=== PATIENT | female | born 1945 | race Caucasian/White ===

== ENCOUNTER 2025-02-08 17:13 | Emergency (ER) | payer MEDICARE, OTHER, SELFPAY ==
--- OUTSIDE RECORDS SUMMARY | 2024-08-06 13:22 | XMS_ITS | Continuity of Care Document ---
Author Organization [employer] [place] Address 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 Name Role Phone Jose PT,MPT,ATC, Joseph Unavailable Unavai lable Procedures Procedure Date Therapeutic Activities Therapeutic Exercise Therapeutic Activities Therapeutic Exercise Therapeutic Activities Therapeutic Exercise Therapeutic Activities Therapeutic Exercise Therapeutic Activities Therapeutic Exercise Therapeutic Activities Therapeutic Exercise Therapeutic Activities Therapeutic Exercise Doc neg elder mal no plan PRES/ABSN URINE INCON ASSESS PT Evaluation Moderate Complexity Therapeutic Activities Therapeutic Exercise Therapeutic Exercise Manual Therapy Therapeutic Exercise Manual Therapy Therapeutic Exercise Manual Therapy Therapeutic Exercise Manual Therapy Therapeutic Exercise Manual Therapy Therapeutic Exercise Therapeutic Exercise Doc neg elder mal no plan PRES/ABSN URINE INCON ASSESS PT Evaluation Low Complexity Therapeutic Activities Therapeutic Exercise Manual Therapy Advance Directives Directive Yes / No Effective Date File Name No Information Encounters Encounter Description Practice Location Reason(s) For Visit Diagnoses Date Provider Providers Copied on Encounter [facility], [place], [place], [id number], tel:[phone] [place] No Information [address] [place]. [facility], [place], [place], [id number], tel:[phone] [place] No Information [address] [place], . Referring Provider: Michelle Reyan, [address] [place] [address], [address]. tel:[phone] [facility] [address] [address], [place], [place], [id number], tel:[phone] [place] No Information [address] [place]. Referring Provider: Michelle Reyna, [address] [place] [address], [address]. tel:[phone] [facility] [address] [address], [place], [place], [id number], tel:[phone] [place] No Information [address] [place]. Referring Provider: Michelle Reyna, [address] [place] [address], [address]. tel:[phone] [facility] [address], [place], [place], [id number], [place] tel:[phone] [place] No Information [address] [place], . Referring Provider: Michelle Reyna, [address] [place] [address], [address]. tel:[phone] [facility] [address], [place], [place], [id number], [place] tel:[phone] [place] No Information [address] [place] Referring Provider: Michelle Reyna, [address] [place] [address], [address]. tel:[phone] [facility], [address], [place], [place], [id number], [place] tel:[phone] [place] No Information [address] [place]. Referring Provider: Michelle Reyna, [address] [place] [address], [address]. tel:[phone] [facility], [address], [place], [place], [id number], [place] tel:[phone] [place] No Information [address] [place]. Referring Provider: Michelle Reyna, [address] [place] [address], [address]. tel:[phone] [facility], [address], [place], [place], [id number], [place] tel:[phone] [place] No Information [address] [place]. Referring Provider: Michelle Reyna, [address] [place] [address], [address]. tel:[phone] [facility], [address], [place], [place], [id number], [place] tel:[phone] [place] No Information 4 [place]. . Referring Provider: Allen Quiroga, [address] [place] [address], [place], [address]. tel:[phone] [facility], [address], [place], [place], [id number], [place] tel:[phone] [place] No Information 4 [place]. . Referring Provider: [address], [place], [address]. tel:[phone] [facility], [address], [place], [place], [id number], [place] tel:[phone] [place] No Information 4 [place]. . Referring Provider: [address], [place], [address]. tel:[phone] [facility], [address], [place], [place], [address], [place] tel:[phone] [place] No Information 4 [place]. . Referring Provider: [address], [place], [address]. tel:[phone] [facility] [address], [place], [place], [id number], [place] tel:[phone] [place] No Information 4 [place]. . Referring Provider: [address], [place], [address]. tel:[phone] [facility], [place], [place], [address], [place] tel:[phone] [place] No Information 4 [place]. . Referring Provider: [address], [place], [address]. tel:[phone] [facility], [address], [place], [place], [address], [place] tel:[phone] [place] No Information 4 [place]. . Referring Provider: [address], [place], [address]. tel:[phone] [facility], [place], [place], [id number], [place] tel:[phone] [place] Unspecified urinary incontinence Andrew Flores. . Referring Provider: Allen Quiroga, [facility] [address], [place], [address]. tel:[phone] Family History Family Member Type Diagnosis Age At Onset No Information Payers Payer name Insurance type Covered republican ID Authoriza tion(s) Medicare [place] [id number] For Life Medicare Se condary Only CI [id number] Social History Type Description Quantity Date Captured Comments Sex Female Smoking Status No Information Chief Complaint And Reason For Visit No Information Reason For Referral Reason For Referral No Information History Of Present Illness Encounter Date Complaint History Of Prese nt Illness No Information Functional Status Date Functional Assessmen t No Information Instructions Date Instruction Additional Infor kaleigh Kegel exercises were explained to the patient. Related to Unspecified urinary incontinence Assessments Type Assessment Date No Information Patient Care Teams Name Effective Dates (start - stop) Status Members No Information
--- NOTE | ~2025-02-08 | XR_ITS ---
EXAMINATION: XR knee LT 3V, 02/08/2025 17:41 CDT HISTORY: fall COMPARISON: No comparisons available. Findings: No acute fracture or malalignment. Prosthesis intact Soft tissues unremarkable. Impression: No acute fracture or malalignment. Reviewed, dictated and finalized at location P. Impression: No acute fracture or malalignment.
--- NOTE | ~2025-02-08 | XR_ITS ---
EXAMINATION: XR ankle RT 2V, 02/08/2025 17:41 CDT HISTORY: Fall X TODAY COMPARISON: No comparisons available. Findings: Small avulsion fracture arising from the lateral aspect of the probable cuboid. No significant degenerative changes. Soft tissues unremarkable. Impression: Small evulsion fracture Reviewed, dictated and finalized at location P. Impression: Small evulsion fracture
--- NOTE | ~2025-02-08 | XR_ITS ---
XR foot RT min 3V 02/08/2025 19:37 Indication: Cuboid fracture Procedure: 3 views right foot Comparison: 02/08/2025 Findings: There is an avulsion fracture lateral margin of the calcaneus. Moderate soft tissue swelling. Osteopenia. 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 Lisfranc joint intact. No other fracture or traumatic malalignment. Small degenerative calcaneal enthesophyte. There are degenerative changes of the talonavicular joint. Impression: 1: Avulsion fracture lateral margin of the calcaneus with associated soft tissue swelling. Reviewed, dictated and finalized at location O. Impression: 1: Avulsion fracture lateral margin of the calcaneus with associated soft tissu e swelling.
--- NOTE | ~2025-02-08 | XR_ITS ---
EXAMINATION: XR knee RT 3V, 02/08/2025 17:41 CDT HISTORY: fall X TODAY COMPARISON: No comparisons available. Findings: No acute fracture or malalignment. No significant degenerative changes. Soft tissues unremarkable. Impression: No acute fracture or malalignment. Reviewed, dictated and finalized at location P. Impression: No acute fracture or malalignment.
--- OUTSIDE RECORDS SUMMARY | 2025-02-08 17:16 | XMS_ITS | Clinical Summary ---
Author Organization [facility] Address [address] [address] Care Team Providers Care Lace Finisher Name Role Phone Allen Quiroga MD Primary Care Provider [phone] Karina Ruelas MD Unavailable Jeannette Cabrales MD Unavailable [phone] Elizabeth An MD Unavailable Bill Mederos MD Unavailable Riley Zarco MD Unavailable Malik West MD Unavailable [phone] Mitch Ch MD Unavailable Allergies Active Allergy Reactions Criticality Noted Date Comments Penicillins Rash Medium Medications psyllium 0.52 gram capsuleIndication s:constipation Take 1 capsule (0.52 g total) by mouth tin stacker before breakfast 4 Active calcium carbonate (CALCIUM 500 ORAL)Indications: supplement Take by mouth tin stacker before breakfast Active ascorbic acid (VITAMIN C) 500 mg tablet,chewableIn dications:for supplement every morning Activ e lisinopriL (PRINIVIL,ZESTRIL ) 10 mg tabletIndications :Essential hypertension TAKE 1 TABLET DAILY 90 tablet 3 4 Active doxycycline hyclate (VIBRAMYCIN) 50 mg capsule Take 1 capsule (50 mg total) by mouth 2 (two) times a day 180 capsule 4 4 Active azelastine (ASTELIN) 137 mcg (0.1 %) nasal spray Administer 1 spray into each nostril 2 (two) times a day Use in each nostril as directed 90 mL 3 4 Active gabapentin (NEURONTIN) 300 mg capsule Take 1 capsule (300 mg total) by mouth 3 (three) times a day 60 capsule 5 07/03/19 26 Active hydroxychloroquin e (PlaqueniL) 200 mg tabletIndications :Rheumatoid arthritis involving multiple sites with positive rheumatoid factor (HCC) TAKE 1 TABLET DAILY 90 tablet 5 Active Active Problems Problem Noted Date Diagnosed Date Blood in stool 01/01/2025 Assessment & Plan (01/01/2025 11:23 AM CDT): Episode of diarrhea, abdominal cramping 12/29 with 3 episodes of bloody bowel movements, significant quantity per pt. Hx IBS, pt states hx polyps on colonoscopy in the past. Hx internal/external hemorrhoids. Not taking NSAIDs. No fevers, chills, N/V. On exam today abdomen is non-tender, VSS. Checking labs, CT abd/pelvis, colonoscopy. Instructed pt to go to ER w/recurrence, verbalized understanding and agrees w/POC. Abdominal pain 01/01/2025 Assessment & Plan (01/01/2025 11:24 AM CDT): Generalized abdominal discomfort and cramping with episode of blood in stool; non-tender on exam today. Last bowel movement 2 days ago. Presently no N/V, fevers, chills. Labs, CT, colonoscopy To ER w/severe abdominal pain, recurrence of blood in stool, LH, dizziness, SOB, CP. Hallux valgus of right foot 09/08/2024 Assessment & Plan (09/08/2024 12:46 PM CDT): We discussed the condition and treatments today in detail. I feel that with her attempted conservative care over multiple years failing that she is in acceptable surgical candidate at this time. I have explained the surgical risks and benefits with the patient and/or family today. All questions were answered fully and no implied or written guarantees were offered. Informed surgical consent reviewed. Plan is for Lapidus fusion right, 1st metatarsal head osteotomy right, Mirtha osteotomy right 2nd metatarsal, plantar plate repair right 2nd metatarsophalangeal joint, possible hammertoe correction right 2nd toe. The patient has failed conservative care which has included accommodative shoe/padding, pain medication, and recommendations and treatment from our office. Based upon this failure, the patient's desire to correct the deformity, prevent additional complications, and improve pain/function, it is felt that surgical intervention is the best option at this time. Decision was made by the patient after being presented with all possible treatment options. The procedure will be performed under MAC (monitored anesthetic care). Patient will go to PAT clinic for evaluation pre-operatively. The patient has active medication list was reviewed. I have requested the following modifications perioperatively: Hold nonsteroidal anti-inflammatories 7 days preop. She may continue her Plaquenil perioperatively. The patient agreed to follow and abide by my perioperative recommendations. Patient understands that if she does not follow these, that she is at risk for complications. Patient verbalized understanding. I reiterated again to the patient that not all surgeries are 100% successful and I cannot guarantee a good surgical result. The ramifications, risks, benefits, treatment alternatives, follow up, and compliance were were explained to the patient. The patient understood the risks and benefits of surgery, including, but not limited to bleeding, infection, nerve or muscle injury, need for reoperation, nonunion, malunion, and recurrence of deformity, and in an extreme situation loss of digit or limb. The patient is told that they may have recurrent or increased pain, recurrence of the issue, complications specific to the procedure, scar tissue, nerve related issues, and possible postoperative infection. The expected post-operative course was discussed in detail. We also discussed that it is possible that any hardware implanted during the surgery such as screws plates are pins may need to be removed postoperatively. This would be a separate surgical procedure. Imaging was reviewed and the planned surgery was discussed utilizing the patient's radiographic images. We have discussed expectations after surgical recovery is complete, including possible physical therapy, changes in shoewear and duration of swelling. Patient verbalized that they understood that not all surgery is 100% successful. Metatarsal deformity, right 09/08/2024 Assessment & Plan (09/08/2024 12:45 PM CDT): See above Subluxation of metatarsophal angeal joint of lesser toe, right, initial encounter 09/08/2024 Assessment & Plan (09/08/2024 12:45 PM CDT): See above Pain in right foot 09/08/2024 Assessment & Plan (09/08/2024 12:45 PM CDT): Continue to wear accommodative shoes until the day of surgery. Hammertoe of right foot 09/08/2024 Assessment & Plan (09/08/2024 12:48 PM CDT): She might require repair of the hammertoe right 2nd but this will be determined intraoperatively once I shorten the 2nd metatarsal. We will plan for a [employer] phalinx implant at this is required Mass of leg, right 07/23/2024 Bilateral lumbar radiculopathy 07/02/2024 Assessment & Plan (07/02/2024 3:16 PM RIM FIRE CHARGER OPERATOR): Chronic, atraumatic now w/ progressive daily pain, BLLE radiculopathy DDx of sacroiliitis vs lumbar radiculopathy Baseline xray today w/ mri pending xray, progressive sxs PMR OV pending August Pain manageable- amenable defer RX NSAIDs for now pending results Counseled sacroilitis HEP, heat/ice, topical analgesics, stretching & cnt formal PT interim of PMR & imaging Update in the wk Thoracic back pain 02/21/2024 Assessment & Plan (02/21/2024 10:11 AM CDT): Intermittent. Benign exam. He description sound like a periodic muscle spasm. She wants to hold of on Xray. Will refer to PT. Encounter for eye exam due to high risk medicati on 09/02/2022 Overview (09/02/2022): Since 2016ish Assessment & Plan (09/02/2022 1:54 PM CDT): Since 2017ish Plan dilated next visit with mac OCT and DFE/CV. PCO (posterior capsular opacification), left Assessment & Plan (09/02/2022 1:49 PM CDT): Well healed after YAG cap left eye (OS). Ok to give MRx for distance Reading good Assessment & Plan (07/29/2022 8:59 AM CDT): Visually significant PCO left eye (OS). R/b/a discused and the patient decided to proceed. All questions were answered. (also see Procedure note) After proper consent was obtained, the patient was carefully transported to the laser room where the operative eye was anesthetized. Using a contact lens, an opening was created in the posterior capsule without difficulty. The lens was then removed, the eye irrigated, and postop drops given. The patient left the laser suite in good condition and the intraocular pressure was checked 30 minutes post-op in the office. Assessment & Plan (06/10/2022 11:42 AM RIM FIRE CHARGER OPERATOR): Visually significant PCO left eye (OS). R/b/a discused and the patient decided to proceed. All questions were answered. Pseudophakia of both eyes 07/21/2021 Overview (06/10/2022): 07/20/2021- Extraction Cataract - Phacoemulsification And Lens Implant - Left 05/26/2022- Right Eye Extraction Cataract - Phacoemulsification And Lens Implant - Right MX60E of power 22.0D AIM: -0.75 Assessment & Plan (09/02/2022 1:50 PM CDT): 07/20/2021- Extraction Cataract - Phacoemulsification And Lens Implant - Left 05/26/2022- Right Eye Extraction Cataract - Phacoemulsification And Lens Implant - Right MX60E of power 22.0D AIM: -0.75 Implants in good position. Vision stable Happy after YAG cap left eye (OS). MRx given Assessment & Plan (07/29/2022 9:11 AM CDT): 07/20/2021- Extraction Cataract - Phacoemulsification And Lens Implant - Left 05/26/2022- Right Eye Extraction Cataract - Phacoemulsification And Lens Implant - Right MX60E of power 22.0D AIM: -0.75 Well healed. Eval right eye (OD) for iritis today. None seen, but ok pred forte (PF) QID x 1 week right eye (OD) along with left eye (OS). Assessment & Plan (06/10/2022 11:43 AM RIM FIRE CHARGER OPERATOR): 07/20/2021- Extraction Cataract - Phacoemulsification And Lens Implant - Left Status-post Right Eye Extraction Cataract - Phacoemulsification And Lens Implant - Right 05/26/2022 Best corrected vision is much improved and the patient is pleased with results. The eye is well-healed with no evidence of infection. Plan discontinue ocuflox and taper prednisione TID (3) x 1 week, BID (2) x 1 week , then daily x 1week, then discontinue and ketorolac TID (3) until gone. Call if any inflammation increases or other symptoms worsen or occur. Glasses prescription was offered/given for use as needed. The patient was instructed to contact us if any new concerns occur with this eye. Assessment & Plan (05/26/2022 11:39 AM RIM FIRE CHARGER OPERATOR): Post op day 1s/p Right Eye Extraction Cataract - Phacoemulsification And Lens Implant - Right 05/26/2022 No complaints; Doing well Use ofloxacin and prednisolone and ketorolac to operative eye QID Eye shield at bedtime, glasses or shield during the day PO instructions given RTC 1-2 weeks, earlier if any complaints or concerns Assessment & Plan (03/04/2022 11:32 AM CDT): Extraction Cataract - Phacoemulsification And Lens Implant - Left 07/20/2021 Implants in good position. Vision stable PCO starting left eye (OS). Pt happy with result. Well healed. BCVA may be limited by retinal history left eye (OS). Assessment & Plan (07/31/2021 10:37 AM CDT): Status-post Extraction Cataract - Phacoemulsification And Lens Implant - Left 07/20/2021 Best corrected vision is much improved and the patient is pleased with results. The eye is well-healed with no evidence of infection. Plan discontinue ocuflox and taper prednisione TID (3) x 1 week, BID (2) x 1 week , then daily x 1week, then discontinue and ketorolac TID (3) until gone. Call if any inflammation increases or other symptoms worsen or occur. Glasses prescription was offered/given for use as needed. The patient was instructed to contact us if any new concerns occur with this eye. Assessment & Plan (07/21/2021 8:46 AM RIM FIRE CHARGER OPERATOR): Post op day 1s/p Extraction Cataract - Phacoemulsification And Lens Implant - Left 07/20/2021 No complaints; Doing well Use ofloxacin and prednisolone and ketorolac to operative eye QID Eye shield at bedtime, glasses or shield during the day PO instructions given RTC 1-2 weeks, earlier if any complaints or concerns Showed how reading is pretty good already and better than right eye (OD). Needs to hold in a specific area Retina hole, left 02/20/2021 Lattice degeneration of peripheral retina, left 02/20/2021 Irritable bowel syndrome wit h both constipation and diarrhea 09/18/2020 Assessment & Plan (01/01/2025 11:21 AM CDT): Patient believes recent episode began as an IBS flare, however she had significant blood with bowel movements on 12/29 accompanied by abdominal cramping, diarrhea. Checking labs, CT, colonoscopy. Instructed patient to go to ER with recurrence of bleeding, LH/Dizziness, CP, SOB; pt verbalized understanding and agrees w/POC. Assessment & Plan (09/18/2020 3:22 PM CDT): Improving recently on probiotics. Dr. Mckinnon indicated in his last notes that this is possible DX. Exam today is benign. Continue probiotic. Add dicyclomine PRN. Long-term use of Plaquenil 02/25/2020 Overview (02/25/2020): Since 2016- Possible RA (seropositive) (2017 decreased dose) Assessment & Plan (02/25/2021 9:47 AM CDT): Since 2016- Possible RA (seropositive) (2017 decreased dose) No evidence of plaquenil toxicity of her maculas at this time. No contraindication for continued therapy with plaquenil. Pt to call if any concerns or changes with her vision. Taking 100mg every day (qD) because of eye concerns. No sig changes in systemic symptoms. Encourage pt to discuss with Dr. Cabrales. No ocular concerns with continued treatment. Assessment & Plan (08/25/2020 10:20 AM CDT): Since 2016- Possible RA (seropositive) (2017 decreased dose) No evidence of plaquenil toxicity of her maculas at this time. No contraindication for continued therapy with plaquenil. Pt to call if any concerns or changes with her vision. Assessment & Plan (02/25/2020 12:43 PM CDT): Since 2016- Possible RA (seropositive) (2017 decreased dose) No evidence of plaquenil toxicity of her maculas at this time. No contraindication for continued therapy with plaquenil. Pt to call if any concerns or changes with her vision. Epiretinal membrane (ERM) of both eyes 8 Assessment & Plan (03/04/2022 9:55 AM CDT): Noted on macular OCT left eye (OS)>>OD. Will monitor. Assessment & Plan (07/31/2021 12:04 PM CDT): Noted on macular OCT left eye (OS)>>OD. Will monitor. Assessment & Plan (02/25/2021 8:22 AM CDT): Noted on macular OCT left eye (OS)>>OD. Will monitor. Assessment & Plan (08/25/2020 12:54 PM CDT): Noted on macular OCT left eye (OS)>>OD. Will monitor. Assessment & Plan (03/23/2018 5:19 PM RIM FIRE CHARGER OPERATOR): Discussed diagnosis with patient; will continue to observe. Vitiligo 11/01/2016 Essential hypertension 11/05/2014 Assessment & Plan (03/08/2024 11:47 AM CDT): Hypertension is stable Continue current treatment regimen. Regular aerobic exercise. Continue current medications. Blood pressure will be reassessed at the next regular appointment. Assessment & Plan (02/21/2024 10:22 AM CDT): Hypertension is stable Continue current treatment regimen. Regular aerobic exercise. Continue current medications. Blood pressure will be reassessed at the next regular appointment. Assessment & Plan (07/14/2023 10:06 AM RIM FIRE CHARGER OPERATOR): Hypertension is stable Continue current treatment regimen. Regular aerobic exercise. Continue current medications. Blood pressure will be reassessed at the next regular appointment. Assessment & Plan (02/18/2023 9:54 AM CDT): Hypertension is stable Continue current treatment regimen. Regular aerobic exercise. Continue current medications. Blood pressure will be reassessed at the next regular appointment. Assessment & Plan (02/17/2022 10:12 AM CDT): Hypertension is stable Continue current treatment regimen. Regular aerobic exercise. Continue current medications. Blood pressure will be reassessed at the next regular appointment. Assessment & Plan (02/13/2021 11:56 AM CDT): Hypertension is stable Continue current treatment regimen. Regular aerobic exercise. Continue current medications. Blood pressure will be reassessed at the next regular appointment. Assessment & Plan (02/13/2020 11:29 AM CDT): Hypertension is stable Continue current treatment regimen. Regular aerobic exercise. Continue current medications. Blood pressure will be reassessed at the next regular appointment. Assessment & Plan (06/07/2019 1:14 PM RIM FIRE CHARGER OPERATOR): Hypertension is controlled Continue current treatment regimen. Regular aerobic exercise. Continue current medications. Ambulatory blood pressure monitoring. Blood pressure will be reassessed at the next regular appointment. Assessment & Plan (11/08/2018 12:00 PM CDT): Hypertension is improving with treatment. Continue current treatment regimen. Regular aerobic exercise. Continue current medications. Ambulatory blood pressure monitoring. Blood pressure will be reassessed at the next regular appointment. Assessment & Plan (07/24/2018 10:29 AM CDT): Hypertension is mild. Regular aerobic exercise. Start ACEI Blood pressure will be reassessed in 3 months. Rheumatoid arthritis 08/26/2014 Assessment & Plan (02/21/2024 9:58 AM CDT): Fair control. Managed by Rheumatology. Continue current regimen. Assessment & Plan (02/18/2023 9:59 AM CDT): Fair control. Managed by Rheumatology. Continue current regimen. Assessment & Plan (02/17/2022 10:12 AM CDT): Fair control. Managed by Rheumatology. Continue current regimen. Assessment & Plan (02/13/2021 12:00 PM CDT): Fair control. Managed by Rheumatology. Continue current regimen. Assessment & Plan (02/13/2020 11:42 AM CDT): Fair control. Managed by Rheumatology. Continue current regimen. Eczema 11/07/2013 Atrophic vaginitis 10/09/2013 Rosacea 10/03/2013 History of adenomatous polyp of colon 10/07/2011 Assessment & Plan (02/21/2024 9:56 AM CDT): Up to date on colonoscopy Assessment & Plan (02/18/2023 9:53 AM CDT): Up to date on colonoscopy Assessment & Plan (02/17/2022 10:16 AM CDT): Up to date on colonoscopy Assessment & Plan (02/13/2021 12:01 PM CDT): Up to date on colonoscopy Assessment & Plan (02/13/2020 11:32 AM CDT): Request colonoscopy report from [facility]. Assessment & Plan (07/24/2018 10:30 AM CDT): Request colonoscopy report. Hay fever 09/23/2011 Osteoarthritis of cervical spine 09/23/2011 Non-toxic multinodular goiter 09/23/2011 Assessment & Plan (02/21/2024 9:59 AM CDT): Prior benign FNA biopsy 06/14/2011.. Stable on last US 09/17/2016. Clinically euthyroid. Check labs. Last Thyroid US 03/06/20: Right thyroid nodules, previously biopsied, benign, with no significant interval change. Benign-appearing left thyroid nodule that do not meet ACR TI RADS guidelines for follow-up. Assessment & Plan (02/18/2023 9:59 AM CDT): Prior benign FNA biopsy 06/14/2011.. Stable on last US 09/17/2016. Clinically euthyroid. Check labs. Last Thyroid US 03/06/20: Right thyroid nodules, previously biopsied, benign, with no significant interval change. Benign-appearing left thyroid nodule that do not meet ACR TI RADS guidelines for follow-up. Assessment & Plan (02/17/2022 10:13 AM CDT): Prior benign FNA biopsy 06/14/2011.. Stable on last US 09/17/2016. Clinically euthyroid. Check labs. Last Thyroid US 03/06/20: Right thyroid nodules, previously biopsied, benign, with no significant interval change. Benign-appearing left thyroid nodule that do not meet ACR TI RADS guidelines for follow-up. Assessment & Plan (02/13/2021 12:03 PM CDT): Prior benign FNA biopsy 06/14/2011.. Stable on last US 09/17/2016. Clinically euthyroid. Check labs. Last Thyroid US 03/06/20: Right thyroid nodules, previously biopsied, benign, with no significant interval change. Benign-appearing left thyroid nodule that do not meet ACR TI RADS guidelines for follow-up. Assessment & Plan (02/13/2020 11:41 AM CDT): Prior benign FNA biopsy 06/14/2011.. Stable on last US 09/17/2016. Assessment & Plan (07/24/2018 10:28 AM CDT): Clinically euthyroid. Check labs. Osteoarthritis of multiple joints 09/07/2011 Vitamin D deficiency 09/07/2011 Fibromyalgia 08/03/2011 Hyperlipidemia 06/20/2009 Assessment & Plan (02/21/2024 9:58 AM CDT): I discussed ASCVD risk. I spent 15 minutes counseling on CV risk reduction. Our discussion included the followin. Healthy eating habits, including low carbohydrate diet, low starch vegetables. 2. Regular aerobic exercise plan, which can include walking, jogging, treadmill, rowing, swimming biking. I recommend targeting the equivalent of 10K steps daily most days of the week. 3. Optimize BP control. Assessment & Plan (02/18/2023 9:59 AM CDT): I discussed ASCVD risk. I spent 15 minutes counseling on CV risk reduction. Our discussion included the followin. Healthy eating habits, including low carbohydrate diet, low starch vegetables. 2. Regular aerobic exercise plan, which can include walking, jogging, treadmill, rowing, swimming biking. I recommend targeting the equivalent of 10K steps daily most days of the week. 3. Optimize BP control. Assessment & Plan (02/17/2022 10:12 AM CDT): I discussed ASCVD risk. I spent 15 minutes counseling on CV risk reduction. Our discussion included the followin. Healthy eating habits, including low carbohydrate diet, low starch vegetables. 2. Regular aerobic exercise plan, which can include walking, jogging, treadmill, rowing, swimming biking. I recommend targeting the equivalent of 10K steps daily most days of the week. 3. Optimize BP control. Assessment & Plan (02/13/2021 12:01 PM CDT): I spent 15 minutes counseling her on CV risk reduction. Our discussion included the followin. Healthy eating habits, including low carbohydrate diet, low starch vegetables. We discussed intermittent fasting and paleo diets. 2. Regular aerobic exercise plan, which can include walking, jogging, treadmill, rowing, swimming biking. I recommend targeting the equivalent of 20K steps daily most days of the week. 3. Optimize BP control. Assessment & Plan (07/24/2018 10:24 AM CDT): I spent 15 minutes counseling her on CV risk reduction. Our discussion included the followin. Healthy eating habits, including low carbohydrate diet, low starch vegetables. We discussed intermittent fasting and paleo diets. 2. Regular aerobic exercise plan, which can include walking, jogging, treadmill, rowing, swimming biking. I recommend targeting the equivalent of 20K steps daily most days of the week. 3. Optimize BP control. 4. Taking aspirin. 5. Assessment of ASCVD risk and recommendations how to mitigate this risk.discussion was consistent with the 5 A s approach. Resolved Problems Problem Noted Date Diagnosed Date Resolved Date Right calf pain 06/19/2020 06/19/2020 Assessment & Plan (06/19/2020 9:53 AM RIM FIRE CHARGER OPERATOR): Superficial thrombophlebitis suspected based on clinical exam, however, for peace of mind recommending labs looking into any electrolyte abnormalities or thrombus w/ d.dimer. Right LE venous duplex was also ordered to complete with any elevation in D- dimer. If D-dimer unremarkable, will move forward with recommendations for superficial thrombophlebitis in clinic compression, heat, OTC anti-inflammatories. Further direction pending labs today. Costochondral chest pain 06/19/202008/2020 Assessment & Plan (06/19/2020 9:56 AM RIM FIRE CHARGER OPERATOR): Right breast imaging including ultrasound, diagnostic mammogram unremarkable-suggesting costochondritis. Endorses sx to gradually improve in the last week with stretching, heat. Will Cnt. To monitor. Sx to report provided Chest wall pain 05/14/2020 06/19/2020 Assessment & Plan (05/14/2020 11:26 AM RIM FIRE CHARGER OPERATOR): Pectoralis strain suspected given exam. Prior Mammograms reviewed and unremarkable. Recommending R breast ultrasound, naproxen BID and stretching exercises (is ultrasound negative). Indications to report provided and further direction pending testing. Meibomian gland dysfunction (MGD) of both eyes 04/04/2019 02/10/2021 Assessment & Plan (08/25/2020 10:20 AM CDT): Add hot compresses with lid scrubs to improve quality of tears. Ocusoft scrubs may be used. Consider ocassional lubricant drops PRN. Fish oil/flax seed oil also may help symptoms. Assessment & Plan (02/25/2020 11:00 AM CDT): Add hot compresses with lid scrubs to improve quality of tears. Ocusoft scrubs may be used. Consider ocassional lubricant drops PRN. Fish oil/flax seed oil also may help symptoms. Assessment & Plan (04/04/2019 3:43 PM RIM FIRE CHARGER OPERATOR): Add hot compresses with lid scrubs to improve quality of tears. Ocusoft scrubs may be used. Consider ocassional lubricant drops PRN. Fish oil/flax seed oil also may help symptoms. Keratoconjunctivitis sicca ([facility] [facility]) 04/04/2019 02/10/2021 Assessment & Plan (08/25/2020 10:20 AM CDT): Recommend increase lubricant eye drops to 4 times/day; consider preservative- free drops, especially if using drops more than that. Add hot compresses with lid scrubs to improve quality of tears. Ok restasis or xiidra if no better. Call for Rx Assessment & Plan (02/25/2020 11:00 AM CDT): Recommend increase lubricant eye drops to 4 times/day; consider preservative- free drops, especially if using drops more than that. Add hot compresses with lid scrubs to improve quality of tears. Ok restasis or xiidra if no better. Call for Rx Assessment & Plan (04/04/2019 3:45 PM RIM FIRE CHARGER OPERATOR): Recommend increase lubricant eye drops to 4 times/day; consider preservative- free drops, especially if using drops more than that. Add hot compresses with lid scrubs to improve quality of tears. Ok restasis or xiidra if no better. Call for Rx Combined forms of age-relate d cataract of right eye 03/23/2018 05/26/2022 Assessment & Plan (03/04/2022 11:38 AM CDT): Patient complains of significant symptoms and problems with activities of daily living due to visually significant disease. R/B/A of cataract surgery discussed with the patient including bleeding, infection, chronic inflammation, need for glasses and/or second surgery, loss of vision, loss of eye, and even very rarely, . Patient's questions were answered and wants to proceed with cataract extraction with intraocular lens implant. Pamphlet given and plans were made to schedule this elective surgery. Recommend phaco/intraocular lens (IOL) OD. Pre-op drops: ofloxacin and ketorolac. Post op drops: Prednisiolone Pre-op pre-operative testing needed: None- plan recalculation of current measurements. Aim: -0.75 To -0.50 Notes: 30/Consider trypan blue for poor view Assessment & Plan (07/31/2021 12:04 PM CDT): Vis sig but wants to wait until after summer to consider surgery. Plan cat eval in 6 mo Assessment & Plan (02/25/2021 10:03 AM CDT): Has epiretinal membrane (ERM) left eye (OS)>OD which may limit BCVA Patient complains of significant symptoms and problems with activities of daily living due to visually significant disease. R/B/A of cataract surgery discussed with the patient including bleeding, infection, chronic inflammation, need for glasses and/or second surgery, loss of vision, loss of eye, and even very rarely, . Patient's questions were answered and wants to proceed with cataract extraction with intraocular lens implant. Pamphlet given and plans were made to schedule this elective surgery. Recommend phaco/intraocular lens (IOL) OS. Pre-op drops: ofloxacin and ketorolac. Post op drops: Prednisiolone Pre-op pre-operative testing needed: Ascan/automated topography/manual or auto K's. Aim: -1.25 and -2.50 Notes: 30/NOne Has always been more myopic left eye (OS). Prev -2.00. considering intemediate vs. Near. Note epiretinal membrane (ERM). Confirm after Testing (?toric) Assessment & Plan (08/25/2020 12:55 PM CDT): Notes BCVA is stable if not better. Has epiretinal membrane (ERM) left eye (OS)>OD which may limit BCVA No evidence of palquenil toxicity on macular OCT Try new MRx with readers Assessment & Plan (02/25/2020 12:51 PM CDT): Patient complains of significant symptoms and problems with activities of daily living due to visually significant disease. R/B/A of cataract surgery discussed with the patient including bleeding, infection, chronic inflammation, need for glasses and/or second surgery, loss of vision, loss of eye, and even very rarely, . Patient's questions were answered and wants to proceed with cataract extraction with intraocular lens implant. Pamphlet given and plans were made to schedule this elective surgery. Intially thought she wanted surgery but LMT explained left eye (OS) surgery will not help without correction (sc) unless loses near without correction (sc). Not a candidate for bifocal due to epiretinal membrane (ERM). Explained right eye (OD) is distance eye without correction (sc) and that is getting worse and causing need for glasses at distance more. Pt to consider options. May go with new glasses, may call for surgery (LMT likely recommend near) Assessment & Plan (04/04/2019 3:44 PM RIM FIRE CHARGER OPERATOR): Patient complains of significant symptoms and problems with activities of daily living due to visually significant disease. R/B/A of cataract surgery discussed with the patient including bleeding, infection, chronic inflammation, need for glasses and/or second surgery, loss of vision, loss of eye, and even very rarely, . Patient's questions were answered and wants to proceed with cataract extraction with intraocular lens implant. Pamphlet given and plans were made to schedule this elective surgery. Try distance only glasses first. Work on tear film issues. Reeval in 6 months Assessment & Plan (03/23/2018 5:19 PM RIM FIRE CHARGER OPERATOR): Cataracts OS > OD: updated glasses today. Posterior vitreous detachment of both eyes 03/23/2018 07/20/2018 Assessment & Plan (03/23/2018 5:21 PM RIM FIRE CHARGER OPERATOR): Without RT/RB. Peripheral drusen of both eyes 03/23/2018 07/20/2018 Lipoma of back 09/14/2017 11/07/2018 Anxiety disorder 02/04/2017 07/24/2018 Polymyalgia rheumatica ([facility]/HCC) 08/26/2014 02/17/2022 Gastroesophageal reflux disease 01/05/2013 02/13/2020 Diverticulosis 10/07/2011 07/24/2018 Encounters Date Type Department Care Team Description 01/30/2025 7:18 AM CDT - 01/30/2025 11:59 PM CDT Hospital Encounter [facility] Radiology [facility] [address] [place] [phone] Lesion of spleen Discharge Disposition: Discharge to home or self care 01/30/2025 Results Follow-Up [address] [place] [phone] Michelle Reyna NP US Spleen 01/08/2025 2:55 PM CDT - 01/08/2025 3:40 PM CDT Surgery [facility] Endoscopy at [facility] [address] [place] [phone] Daiana Webb MD COLON REMOVAL SNARE 01/08/2025 2:09 PM CDT Anesthesia Event [facility] Endoscopy at [facility] [address] [place] [address] Arian Vidal MD 01/08/2025 1:34 PM CDT - 01/08/2025 3:51 PM CDT Hospital Encounter [facility] Endoscopy at [address] [phone] Daiana Webb MD Irritable bowel syndrome with both constipation and diarrhea; Blood in stool; Abdominal pain Discharge Disposition: Discharge to home or self care 01/08/2025 Results Follow-Up [address] [phone] Michelle Reyna NP Colonoscopy, Surgical pathology 01/07/2025 1:41 PM CDT - 01/07/2025 11:59 PM CDT Hospital Encounter [facility] Radiology at [address] [address] Blood in stool; Abdominal pain Discharge Disposition: Discharge to home or self care 01/05/2025 7:37 AM CDT - 01/05/2025 11:59 PM CDT Hospital Encounter [facility] Imaging and Radiology [address] [place] [phone] Screening mammogram, encounter for Discharge Disposition: Discharge to home or self care 01/01/2025 11:05 AM CDT Lab [facility] at the [address] [phone] Irritable bowel syndrome with both constipation and diarrhea; Blood in stool 01/01/2025 10:00 AM CDT Office Visit [address] [phone] Michelle Reyna NP Irritable bowel syndrome with both constipation and diarrhea (Primary Dx); Blood in stool; Abdominal pain 01/01/2025 Results Follow-Up [address] [phone] Michelle Reyna NP Comprehensive metabolic panel, CBC with auto differential, Differential, auto, Additional followed-up results: 2 01/01/2025 Telephone [facility] Specialty Services [address] [place] [address] Marie Holden RN GI Preprocedure 12/25/2024 5:15 PM CDT Office Visit [facility] Dermatology [address] [facility] [address] [place] [phone] Jack Singh MD Lipoma of back (Primary Dx); History of nonmelanoma skin cancer; Lentigines from Last 3 Months Immunizations Immunization Administration Dates Next Due COVID-19 MRNA (MODERNA) .5 M L (50 MCG) VACCINE (12 YEARS AND UP) 09/13/2023,02/21/2023 COVID-19 mRNA (PFIZER) 0.3 m L (30 mcg) vaccine (12 years and up) 02/03/2024 Influenza, Quad, Adjuvantate d, Intramuscular 02/08/2025,02/16/2024,01/26/2023,01/30 Influenza, Quadrivalent, Rec ombinant, Egg Free, Preservative Free, Intramuscular 02/17/2022,01/23/2020 Influenza, Trivalent, Adjuva nted, Intramuscular 02/16/2024,01/10/2019,01/10/2019,02/20,02/20/2018,02/20/2018 Influenza, Trivalent, High D ose, Split, Preservative Free, Intramuscular 02/20/2018,01/31/2017,01/25/2017,01/30,02/22/2015 Influenza, Trivalent, Preser vative Free, Intramuscular 03/16/2014,01/05/2013,03/16/2012 Influenza, Unspecified 01/30/2021 Moderna SARS-CoV-2 Monovalen t Vaccination (12+ YRS) 09/24/2021,03/09/2021,07/15/2020,06/12 Moderna Sars-cov-2 Bivalent Vaccine 50 Mcg/0.5 mL (12+ YRS)-Blue/Stock 04/21/2022 Pneumococcal Conjugate PCV 13 01/31/2016 Pneumococcal Polysaccharide PPV23 02/24/2018,05/2011 Sars-cov-2 Covid-19 Mrna, Bi valent, Original/omicron Ba.1 02/03/2024 Sars-cov-2 Covid-19 Mrna, Bi valent, Original/omicron Ba.1, A 02/21/2023 Tdap 01/03/2022,03/16/2012 ZOSTER LIVE 05/16/2008 ZOSTER Recombinant 05/02/2018,11/04/2017 Surgical History Surgery Date Site/Laterality Comments HYSTERECTOMY 05/16/1974 - 05/15/1975 BLEPHAROPLASTY 05/16/2013 - 05/15/2014 Bilateral TOTAL KNEE ARTHROPLASTY 06/16/2019 - 07/14/2019 Left CATARACT EXTRACTION 07/20/2021 Left COSMETIC SURGERY 05/16/2013 - 05/15/2014 FRACTURE SURGERY 05/16/1989 - 05/15/1990 ANKLE SURGERY 05/16/2016 - 05/15/2017 Left tumor removed MOHS SURGERY 05/16/2021 - 05/15/2022 Right arm CATARACT EXTRACTION 05/26/2022 Right [id number] of power 22.0D EYE SURGERY 07/29/2022 Left Yag Cap OS JOINT REPLACEMENT 2019 Medical History Medical History Date Comments Raynaud phenomenon Gastroesophageal reflux disease 01/05/2013 Keratoconjunctivitis sicca (CMS/HCC) (HCC) 04/04 Meibomian gland dysfunction (MGD) of both eyes 1 06/04/2018 Arthritis Autoimmune disease Skin cancer of arm Polymyalgia rheumatica 08/26/2014 PONV (postoperative nausea and vomiting) a long time ago PCO (posterior capsular opacification), left Hypertension Family History Medical History Relation Name Comments Hypertension Brother Thyroid cancer Daughter Coronary artery disease Father Hypertension Father Lung cancer Father Cervical cancer Mother Hypertension Mother Lung cancer Mother Cervical cancer Sister Anesthesia problems Neg Hx Breast cancer Neg Hx Endometrial cancer Neg Hx Glaucoma Neg Hx Macular degeneration Neg Hx Ovarian cancer Neg Hx Relation Name Status Comments Brother Daughter Father Mother Other Alive Sister Social History Tobacco Use Types Packs/Day Years Used Date Smoking Tobacco: Former Cigarettes 0.8 39 0 05/16/1963 - 05/16/2002 Smokeless Tobacco: Never Tobacco Cessation:Counseling Given: Not Answered Alcohol Use Standard Drinks/Week Comments Yes 4 (1 standard drink = 0.6 oz pur e alcohol) PHQ-2 Answer Date Recorded PHQ-2 Total Score (If total score is 3 or more points, staff should administer the PHQ-9) 0 02/21/2024 AUDIT-C Answer Date Recorded Q1: How often do you have a drink containing alcohol? 4 or more times a week 01/08/2025 Q2: How many drinks containi ng alcohol do you have on a typical day when you are drinking? 1 or 2 Q3: How often do you have si x or more drinks on one occasion? Never 01/08/2025 Personal Safety Answer Date Recorded Have you ever been in or are you currently in a harmful physical or emotional relationship or is someone making you feel afraid or unsafe? Denies 01/08/2025 Comments No Sex and Gender Information Value Date Recorded Sex Assigned at Not on file Legal Sex Female 7:49 AM RIM FIRE CHARGER OPERATOR Gender Identity Female 07/13/2021 8:16 AM RIM FIRE CHARGER OPERATOR Sexual Orientation Not on file Occupation Industry Job Start Date Job End Date retired Not on file Not on file Not on file Obstetrics History Para Term AB IAB SAB Ectopic Multiple Livin g Live Births 2 2 2 2 Date Outcome GA Total Labor Labor/2nd/3rd Weight Sex Type Anes PTL Anne A1 A5 Name Clin 1967 Term F Vag-Sp ont Complications:Breech 1971 Term M Vag-Sp ont Complications:None Last Filed Vital Signs Vital Sign Reading Time Taken Comments Blood Pressure 137/62 01/08/2025 3:00 PM CDT Pulse 62 01/08/2025 3:10 PM CDT Temperature 36.2 C (97.2 F) 01/08/2025 2:45 PM CDT Respiratory Rate 25 01/08/2025 3:10 PM CDT Oxygen Saturation 100% 01/08/2025 3:10 PM CDT Inhaled Oxygen Concentration - - Weight 60.3 kg (133 lb) 01/08/2025 1:51 PM CDT Height 157.5 cm (5' 2) 01/08/2025 1:51 PM CDT Body Mass Index 24.33 01/08/2025 1:51 PM CDT Plan of Treatment Health Maintenance Due Date Last Done Comments Osteoporosis Screening-Bone Density Scan 06/10/2024 06/10/2022, 08/26/2014 Covid-19 Vaccine (7 - 2024-2 6 season) 2025 02/03/2024, 02/03/2024, 09/13/2023, Additional history exists Influenza Vaccine (#1) 2025 , 02/16/2024, 02/16/2024, Additional history exists Depression Screening 02/20/2025 02/21/2024, 02/18/2023, 02/17/2022, Additional history exists Well Visit 65+ 02/20/2025 02/21/2024, 10/2022, 02/17/2022, Additional history exists Breast Cancer Screening-Mammogram 01/05/2026 01/05/2025, 12/31/2023, 12/25/2022, Additional history exists Fall Risk Assessment 01/08/2026 01/08/2025, 02/21/2024, 02/18/2023, Additional history exists Colon Cancer Screening-Colonoscopy 01/08/2030 01/08/2025, 03/26/2020, 12/19/2015 DTaP/Tdap/Td Vaccine (3 - Td or Tdap) 01/04/2032 01/03/2022, 03/16/2012 Pneumococcal vaccine 65+ Completed 018, 01/31/2016, 03/16/2012 Zoster Vaccine Completed 05/02/2018, 10/15, 05/16/2008 Hepatitis C Screening Completed 07/24/2018 Colon Cancer Screening-CT Colonography Discontinued 01/08/2025, 03/26/2020, 12/19/2015 Colon Cancer Screening-DNA Stool Discontinued 01/08/2025, 03/26/2020, 12/19/2015 Colon Cancer Screening-FIT Discontinued 01/08, 03/26/2020, 12/19/2015 Colon Cancer Screening-Sigmoidoscopy Discontinued 01/08/2025, 03/26/2020, 12/19/2015 Hepatitis B Screening Discontinued Medical Devices Implanted Type Area Welfare Administrator Device Identifier Shelf Expiration Date Model / Serial / Lot [employer] [id number] - [id number] - [id number] Implanted:Qty: 1 on 07/20/2021 by Colette Harrington MD at [facility] Lens Left: Lens [employer] [id number] 12/14/2023 [id number] / [id number] / [employer] Lens Iol Posterior Biconvex Optic Single Piece Envista 6.0x12.5 +22.0d Hydrophobic Acrylic [id number] - [id number] - [id number] Implanted:Qty: 1 on 05/26/2022 by Colette Harrington MD at [facility] Right: Eye [employer] [id number] 06/15/2024 [id number] / [id number] / Procedures Procedure Name Priority Date/Time Associated Diagnosis Comments US SPLEEN Schedule Routine, Read Routine (OP Routine) 01/30/2025 8:02 AM CDT Lesion of spleen SURGICAL PATHOLOGY Routine 01/08/2025 2: 25 PM CDT Irritable bowel syndrome with both constipation and diarrhea Blood in stool Abdominal pain ENDO ADD ON COLON BIOPSY Open Access 01/08/2025 2:09 PM CDT Irritable bowel syndrome with both constipation and diarrhea Blood in stool Abdominal pain COLON REMOVAL SNARE Open Access 01/08/2025 2 :09 PM CDT Irritable bowel syndrome with both constipation and diarrhea Blood in stool Abdominal pain COLONOSCOPY 01/08/2025 1:[address] ABDOMEN PELVIS W CONTRAST Schedule ENRIQUE, Read Routine (Patient lives out of area) 01/07/2025 2:34 PM CDT Blood in stool Abdominal pain SCREENING MAMMOGRAM BILATERAL W JESSE Schedule Routine, Read Routine (OP Routine) 01/05/2025 7:59 AM CDT Screening mammogram, encounter for EGFR Routine 01/01/2025 11:17 AM CDT Irritable bowel syndrome with both constipation and diarrhea Blood in stool DIFFERENTIAL AUTO Routine 01/01/2025 11: 17 AM CDT Irritable bowel syndrome with both constipation and diarrhea Blood in stool CBC WITH AUTO DIFFERENTIAL Routine 01/01/2025 11:17 AM CDT Irritable bowel syndrome with both constipation and diarrhea Blood in stool COMPREHENSIVE METABOLIC PANEL Routine 01/01/2025 11:17 AM CDT Irritable bowel syndrome with both constipation and diarrhea Blood in stool DEXA AXIAL SKELETON BONE DENSITY 1 OR MORE SITES Schedule Routine, Read Routine (OP Routine) 06/10/2022 9:21 AM RIM FIRE CHARGER OPERATOR Osteopenia, unspecified location Ovarian failure HEPATITIS C ANTIBODY Routine 07/24/2018 10:55 AM CDT Need for hepatitis C screening test from Last 3 Months or Most Recently Relevant to Health Maintenance Results * US Spleen (01/30/2025 8:02 AM CDT) Anatomical Region Laterality Modality Abdomen N/A Ultrasound 01/30/2025 8:10 AM CDT Impressions 01/30/2025 8:10 AM CDT 1. Splenic lesion most likely represents a splenic cyst or benign hemangioma. Electronically signed by: Onur Toussaint M.D. Narrative 01/30/2025 8:10 AM CDT EXAMINATION: LIMITED ABDOMINAL SONOGRAM (SPLEEN) HISTORY: Incidental splenic lesion seen on CT COMPARISON: CT 01/07/2025 FINDINGS: The spleen is normal in size. 1.8 cm hypoechoic focus near the cranial aspect of the spleen, without internal vascularity most compatible with a simple cyst or benign hemangioma. Procedure Note Onur Toussaint MD PhD - 01/30/2025 EXAMINATION: LIMITED ABDOMINAL SONOGRAM (SPLEEN) HISTORY: Incidental splenic lesion seen on CT COMPARISON: CT 01/07/2025 FINDINGS: The spleen is normal in size. 1.8 cm hypoechoic focus near the cranial aspect of the spleen, without internal vascularity most compatible with a simple cyst or benign hemangioma. IMPRESSION: 1. Splenic lesion most likely represents a splenic cyst or benign hemangioma. Electronically signed by: Onur Toussaint M.D. us Michelle Reyna NP IMG US PROCEDURES Final Result * Surgical pathology (01/08/2025 2:25 PM CDT) Tissue (Polyp(s), colon/colorectal, esophageal, gastric) 01/08/2025 2:25 PM CDT Tissue specimen (specimen) (Polyp(s), colon/colorectal, esophageal, gastric) 01/08/2025 2:28 PM CDT Narrative PATHOLOGY [facility] - 01/09/2025 11:25 AM CDT EPIC results best viewed via link to PDF [facility] [place] [address] Note to Patients: This report may contain a detailed description of human tissue sent by a health care provider to the laboratory for pathologic evaluation. The content of this report is essential for diagnosis and may provide important critical findings. This information may be unfamiliar to patients to review without a medical professional present. It is advised that the patient review this report in the presence of a health care provider who can answer questions and explain the details. SURGICAL PATHOLOGY REPORT FINAL Patient Name: MARJAN YOUNG Gender: F : 1945 (Age: 79) [address]: [address] [place] [phone] [facility] #: [id number] Taken:01/08/2025 Received:01/08/2025 Reported: 01/09/2025 Patient Type: [facility] Service: Gastroenterology Location: Physician(s): Jacinto Pavon M.D. Anne Nicole [place], NP Diagnosis: A. Large bowel, transverse colon, polyps x3, polypectomy/biopsy - Fragments of tubular adenoma(s) B. Large bowel, cecum, polyp, polypectomy/biopsy - Tubular adenoma jigna/01/09/2025 10:20 By this signature, I attest that the above diagnosis is based upon my personal examination of the slides(and/or other material indicated in the diagnosis). Arian Rubio MD PhD Report Electronically Reviewed and Signed Out By Arian Rubio MD PhD 01/09/2025 11:25:47 Vania Limia, M.D. History: The patient is a 79-year-old woman presenting with irritable bowel syndrome with both constipation and diarrhea; blood in stool; abdominal pain. Operative procedure: Colon removal snare with biopsy. Specimen(s) Received: A: Transverse colon polyps B: Cecum colon polyp Gross Description: Received in two formalin jars labeled with the patient's identifiers. A. Labeled transverse colon polyps and consists of multiple banuelos-pink fragment(s) of soft tissue measuring 1.1 x 0.5 x 0.2 cm in aggregate. Labeled A1. Jar 0. B. Labeled cecum colon polyp and consists of a single banuelos fragment(s) of soft tissue measuring 0.4 cm in greatest dimension. Labeled B1. Jar 0. sxst/01/08/2025 16:47 PA(s): Rafia Nascimento By this signature, I attest that the above diagnosis is based upon my personal examination of the slides(and/or other material). Addenda/Procedures The performance characteristics of some immunohistochemical stains, fluorescence in-situ hybridization tests and immunophenotyping by flow cytometry cited in this report (if any) were determined by the Surgical Pathology and Flow Cytometry Departments at [facility] as part of an ongoing quality compliance consultant program and in compliance with federally mandated regulations drawn from the Clinical Laboratory Improvement Act of 1988 (CLIA '88). Some of these tests rely on the use of analyte specific reagents and are subject to specific labeling requirements by the US Food and Drug Administration. Such diagnostic tests may only be performed in a facility that is certified by the Department of Health and Human Services as a high complexity laboratory under CLIA '88. The FDA has determined that such clearance or approval is not necessary. This test is used for clinical purposes. It should not be regarded as investigational or for research. Nevertheless, federal rules concerning the medical use of analyte specific reagents require that the following disclaimer be attached to the report: This test was developed and its performance characteristics determined by the Surgical Pathology and Flow Cytometry Departments of [facility]. It has not been cleared or approved by the U. S. Food and Drug Administration. IMAGES AND SCANNED DOCUMENTS, IF INCLUDED, ONLY VIEWABLE IN PDF VERSION OF REPORT Daiana Barlow MD LAB PATHOLOGY [facility] Final Result PATHOLOGY [facility] 3rd Floor [place], [place] [phone] * Colonoscopy (01/08/2025 1:55 PM CDT) Anatomical Region Laterality Modality Other Narrative Procedure Note Daiana Barlow MD - 01/08/2025 1:55 PM CDT [facility] Patient Name: Marjan Young Procedure Date: 01/08/2025 1:55 PM Date of : 1945 Admit Type: Outpatient Age: 79 Gender: Female Attending MD: Jacinto Durham, Room: [facility] ENDOSCOPY ROOM 02 Note Status: Finalized Procedure: Colonoscopy Indications: High risk colon cancer surveillance: Personalhistory of colonic polyps, Last colonoscopy: 2019,Incidental - Rectal bleeding, Incidental - Change in bowelhabits Referring MD: Michelle Reyna, KAYLENE Providers: Daiana Barlow M.D. Medicines: Monitored Anesthesia Care Complications: No immediate complications. Estimated Blood Loss: Estimated blood loss was minimal. Procedure: Pre-Anesthesia Assessment: - Prior to the procedure, a History and Physicalwas performed, and patient medications, allergies and sensitivities were reviewed. The patient'stolerance of previous anesthesia was reviewed. - Immediately prior to administration ofmedications, the patient was re-assessed for adequacy to receive sedatives. The benefits, risks and alternatives of theprocedure and sedation were discussed and informed consentwas obtained. All questions were answered. Please referto the signed informed consent document in the medical record. The scope was passed under direct vision.The [id number] Endoscope was introduced throughthe anus and advanced to the cecum, identified by appendiceal orifice and ileocecal valve. The colonoscopy was somewhat difficult due to multiple diverticula in the colon and significant looping. Successful completion of the procedure was aided by using manual pressure and withdrawing andreinserting the scope. The patient tolerated the procedurewell. The quality of the bowel preparation was evaluated using the BBPS ([place] Bowel Preparation Scale)with scores of: Right Colon = 3, Transverse Colon = 3and Left Colon = 3 (entire mucosa seen well with no residual staining, small fragments of stool oropaque liquid). The total BBPS score equals 9. The bowel preparation used was GoLYTELY via split dose instruction. Findings: The perianal and digital rectal examinations were normal. Non-bleeding internal hemorrhoids were found during retroflexion. The hemorrhoids were medium-sized. Multiple small-mouthed diverticula were found in the sigmoid colon. There was narrowing of the colon in association with the diverticular opening. There was evidence of diverticular spasm. A 4 mm polyp was found in the transverse colon. The polyp wassessile. The polyp was removed with a cold snare. Resection and retrieval were complete. Three sessile polyps were found in the transverse colon (2) and cecum (1). The polyps were 1 to 2 mm in size. These polyps were removedwith a jumbo cold forceps. Resection and retrieval were complete. The exam was otherwise without abnormality. Impression: - Non-bleeding internal hemorrhoids. - Moderate diverticulosis in the sigmoid colon.There was narrowing of the colon in association with the diverticular opening. There was evidence of diverticular spasm. - One 4 mm polyp in the transverse colon, removedwith a cold snare. Resected and retrieved. - Three 1 to 2 mm polyps in the transverse colonand in the cecum, removed with a jumbo cold forceps. Resected and retrieved. - The examination was otherwise normal. Recommendation: - Discharge patient to home. - Await pathology results. - Repeat colonoscopy is not recommended due tocurrent age (66 years or older) for surveillance. - Return to referring physician as previously scheduled. - The cause of rectal bleeding is from bleeding hemorrhoids. - We performed biopsies during your proceduretoday. If you do not receive the result from my office in, please contact my office at [phone]. Attending Participation: I personally performed the entire procedure. Electronically signed by Daiana Barlow MD Daiana Barlow M.D. 01/08/2025 2:49:54 PM . Number of Addenda: 0 Note Initiated On: 01/08/2025 1:55 PM Recognized by the [place] [employer] for promoting quality in endoscopy Daiana Barlow MD ENDOSCOPY PROCEDUR ES Final Result * CT Abdomen Pelvis W Contrast (01/07/2025 2:34 PM CDT) Anatomical Region Laterality Modality Body N/A Computed Tomogra phy 01/07/2025 2:43 PM CDT Impressions 01/07/2025 3:31 PM CDT 1. No acute abnormality in the abdomen or pelvis 2. Hypoattenuating lesion in the spleen may represent hemangioma or cyst. Dictated by: Raymond Valenzuela MD The radiology attending physician has personally reviewed this study, and had reviewed and/or edited this written report and agrees with it. Electronically signed by: Frederick Davies M.D. Narrative 01/07/2025 3:31 PM CDT EXAMINATION: Computed tomography of the abdomen and pelvis with intravenous contrast HISTORY: Abdominal pain, blood in stool TECHNIQUE: Transaxial computed tomographic images of the abdomen and pelvis were obtained with intravenous contrast according to the standard protocol after the uneventful administration of 70 mL Opti-Ray 350 intravenous contrast. COMPARISON: None available FINDINGS: Imaged portion of the lung bases are clear. Heart size is normal. No pericardial effusion. There is borderline enlargement of the spleen. 1.8 cm hypoattenuating lesion in the superior aspect of the spleen. 11 mm partially calcified splenic artery aneurysm. No suspicious hepatic lesion. No biliary ductal dilatation. Portal and hepatic veins are patent. The pancreas, adrenal glands and gallbladder are normal. Kidneys enhance symmetrically. No hydronephrosis. Urinary bladder is normal. Large and small bowel normal in caliber. Diverticulosis. No bowel obstruction. No free fluid or gas. Uterus is atrophic or absent. No omental nodularity. The abdominal aorta is normal in caliber with moderate calcified atherosclerotic disease. No abdominal pelvic lymphadenopathy. No suspicious lytic or blastic lesions. Osteopenia. Procedure Note Frederick Davies MD - 01/07/2025 EXAMINATION: Computed tomography of the abdomen and pelvis with intravenous contrast HISTORY: Abdominal pain, blood in stool TECHNIQUE: Transaxial computed tomographic images of the abdomen and pelvis were obtained with intravenous contrast according to the standard protocol after the uneventful administration of 70 mL Opti-Ray 350 intravenous contrast. COMPARISON: None available FINDINGS: Imaged portion of the lung bases are clear. Heart size is normal. No pericardial effusion. There is borderline enlargement of the spleen. 1.8 cm hypoattenuating lesion in the superior aspect of the spleen. 11 mm partially calcified splenic artery aneurysm. No suspicious hepatic lesion. No biliary ductal dilatation. Portal and hepatic veins are patent. The pancreas, adrenal glands and gallbladder are normal. Kidneys enhance symmetrically. No hydronephrosis. Urinary bladder is normal. Large and small bowel normal in caliber. Diverticulosis. No bowel obstruction. No free fluid or gas. Uterus is atrophic or absent. No omental nodularity. The abdominal aorta is normal in caliber with moderate calcified atherosclerotic disease. No abdominal pelvic lymphadenopathy. No suspicious lytic or blastic lesions. Osteopenia. IMPRESSION: 1. No acute abnormality in the abdomen or pelvis 2. Hypoattenuating lesion in the spleen may represent hemangioma or cyst. Dictated by: Raymond Valenzuela MD The radiology attending physician has personally reviewed this study, and had reviewed and/or edited this written report and agrees with it. Electronically signed by: Frederick Davies M.D. us Michelle Reyna HEALTH OUTREACH WORKER IMG CT PROCEDURES Final Result * Screening Mammogram Bilateral W Jesse (01/05/2025 7:59 AM CDT) Anatomical Region Laterality Modality Breast Bilateral Mammography Impressions 01/07/2025 8:05 AM CDT Bilateral No evidence of malignancy in either breast. OVERALL BI-RADS FINAL ASSESSMENT: 2 - Benign RECOMMENDATION: Recommend bilateral annual screening mammography. Narrative 01/07/2025 8:05 AM CDT EXAMINATION: Screening Mammogram Bilateral W Jesse: 01/05/2025 COMPARISON: Relevant prior studies available at the time of interpretation were reviewed, including the most recent mammogram on: 12/31/2023. TECHNIQUE: Mammography was performed with 2D and 3D digital breast tomosynthesis (DBT) images. CAD was utilized. BREAST PARENCHYMAL COMPOSITION: The breasts are heterogeneously dense, which may obscure small masses. FINDINGS: Bilateral There is no suspicious mass, calcification, or architectural distortion in either breast. us Self Screening Mammogram IMG MAMMO PROCEDURES Fi nal Result * eGFR (01/01/2025 11:17 AM CDT) eGFR >90 >=60 mL/min/1. 73 m2 Comment: Interpretive Data Reference Interval Normal >/= 90 mL/min/1.73m2 Mildly decreased* 60 - 89 mL/min/1.73m2 Mildly to moderately decreased 45 - 59 mL/min/1.73m2 Moderately to severely decreased 30 - 44 mL/min/1.73m2 Severely decreased 15 - 29 mL/min/1.73m2 Kidney Failure < 15 mL/min/1.73m2 *Relative to young adult level Estimated glomerular filtration rate is determined by the 2020 CKD-EPI equation recommended by the National Kidney Foundation (A Unifying Approach to GFR Estimation: Recommendations of the NKF-ASK Task Force on Reassessing the Inclusion of Race in Diagnosing Kidney Disease, JASN 2020). The CKD-EPI equation should not be used for patients with unstable renal function and has not been validated in children and those over 70. Current interpretive data was last reviewed 2021. Blood 01/01/2025 11:1 7 AM CDT 01/01/2025 1:25 PM CDT us Michelle Reyna HEALTH OUTREACH WORKER LAB BLOOD ORDERABLES Fi nal Result [facility] Department [place] [address] * Differential, auto (01/01/2025 11:17 AM CDT) Neutrophil abs 4.95 1.50 - 6.50 K/cumm Imm gran abs 0.05 0.00 - 0.10 K/cumm [facility] Lymphocyte abs 1.40 0.80 - 3.30 K/cumm [facility] Monocyte abs 0.57 0.20 - 0.80 K/cumm [facility] Eosinophil abs 0.17 0.00 - 0.50 K/cumm [facility] Basophil abs 0.08 0.00 - 0.10 K/cumm [facility] Neutrophil pct 68.5 % [facility] Comment: Interpretive Data Percent cell count reference ranges are not reported, since discordance with absolute values may lead to misinterpretation of CBC data. Current Interpretive Data was last revised on 2017. Imm gran pct 0.7 % [facility] Comment: Interpretive Data Percent cell count reference ranges are not reported, since discordance with absolute values may lead to misinterpretation of CBC data. Current Interpretive Data was last revised on 2017. Lymphocyte pct 19.4 % [facility] Comment: Interpretive Data Percent cell count reference ranges are not reported, since discordance with absolute values may lead to misinterpretation of CBC data. Current Interpretive Data was last revised on 2017. Monocyte pct 7.9 % [facility] Comment: Interpretive Data Percent cell count reference ranges are not reported, since discordance with absolute values may lead to misinterpretation of CBC data. Current Interpretive Data was last revised on 2017. Eosinophil pct 2.4 % [facility] Comment: Interpretive Data Percent cell count reference ranges are not reported, since discordance with absolute values may lead to misinterpretation of CBC data. Current Interpretive Data was last revised on 2017. Basophil pct 1.1 % [facility] Comment: Interpretive Data Percent cell count reference ranges are not reported, since discordance with absolute values may lead to misinterpretation of CBC data. Current Interpretive Data was last revised on 2017. Blood 01/01/2025 11:1 7 AM CDT 01/01/2025 1:18 PM CDT us Michelle Reyna NP LAB BLOOD ORDERABLES Fi nal Result [facility] Department [place] [address] * (ABNORMAL) CBC with auto differential (01/01/2025 11:17 AM CDT) WBC 7.22 3.80 - 9.90 K/cumm Hgb 13.2 11.9 - 15.5 g/dL [facility] Hct 40.5 35.6 - 45.5 % [facility] Plt 307 150 - 400 K/cumm [facility] MPV 11.3 9.1 - 12.[address] [facility] RBC 4.71 3.90 - 5.20 M/cumm [facility] MCV 86.0 81.3 - 96.[address] [facility] MCH 28.0 27.1 - 33.[address] [facility] MCHC 32.6 32.3 - 35.7 g/dL [facility] RDW CV 15.3(H) 11.1 - 14.9 % [facility] RDW SD 47.8 35.7 - 48.[address] [facility] NRBC abs 0.00 0.00 - 0.01 K/cumm [facility] Blood 01/01/2025 11:1 7 AM CDT 01/01/2025 1:18 PM CDT us Michelle Nora [place] HEALTH OUTREACH WORKER LAB BLOOD ORDERABLES Fi nal Result [facility] Department [place] [address] * Comprehensive metabolic panel (01/01/2025 11:17 AM CDT) Sodium 139 135 - 145 mmol/L Potassium, pl 4.3 3.3 - 4.9 mmol/L [facility] Chloride 100 97 - 110 mmol/L [facility] CO2 29 22 - 32 mmol/L [facility] Anion gap 10 2 - 15 mmol/L [facility] BUN 13 6 - 25 mg/dL [facility] Creatinine 0.63 0.60 - 1.10 mg/dL [facility] Glucose 80 70 - 199 mg/dL [facility] Comment: Interpretive Data Fasting glucose >/= 126 mg/dl is diagnostic for diabetes. Fasting is defined as no caloric intake for at least 8 hours. Fasting glucose between 100 mg/dl to 125 mg/dl is diagnostic of prediabetes. In a patient with classic symptoms of hyperglycemia or hyperglycemic crisis, a random glucose >/= 200 mg/dl is diagnostic for diabetes. In the absence of unequivocal hyperglycemia, results should be confirmed by repeat testing. The classification and Diagnosis of Diabetes Diabetes Care 202; 46: S19-S40. Current interpretive data was last revised 2022. Calcium 9.5 8.5 - 10.3 mg/dL [facility] Bilirubin, total 0.4 0.1 - 1.2 mg/dL [facility] Protein, pl 7.1 6.5 - 8.5 g/dL [facility] Albumin 4.5 3.5 - 5.0 g/dL [facility] Alk phos 89 40 - 130 Units/L [facility] ALT 24 7 - 45 Units/L [facility] AST 26 10 - 45 Units/L [facility] Blood 01/01/2025 11:1 7 AM CDT 01/01/2025 1:18 PM CDT Michelle Reyna HEALTH OUTREACH WORKER LAB BLOOD ORDERABLES Fi nal Result [facility] Department [place] [address] * Dexa Axial Skeleton Bone Density 1 or 2 Site (06/10/2022 9:21 AM RIM FIRE CHARGER OPERATOR) Anatomical Region Laterality Modality Body N/A Digital Radiogra phy 06/10/2022 10:0 6 AM RIM FIRE CHARGER OPERATOR Impressions 06/10/2022 11:24 AM RIM FIRE CHARGER OPERATOR 1. The bone mineral density of the lumbar spine is normal. 2. The bone mineral density of the left femoral neck is normal. 3. The bone mineral density of the left total hip is normal. 4. Overall, the above findings are normal by WHO criteria. 5. Calculation of fracture risk using the FRAX model is not appropriate in certain settings. It was not performed in this patient because the patient met the following condition(s): normal bone density. General comments regarding interpretation of bone density measurements: A) In children, premenopausal woman and males under age 50 not at increased risk for fractures only Z-scores, not T-scores are used to indicate risk. A Z-score above -2.0 is defined as within the expected range for age and Z-score at or less than -2.0 is below the expected range for age. A Z-score below the expected range for age in a patient with recent fractures and/or chronic corticosteroid treatment is consistent with a diagnosis of osteoporosis. B) In post menopausal women and males over 50, comparison of the measured bone mineral density with the average value in young normal subjects (the T-score) has been found to be useful in assessing fracture risk. Fracture risk approximately doubles for each 1.0 standard deviation (SD) in individual's hip or spine bone mineral density is below the average value of young normal subjects. The World Health Organization (WHO) has defined T-scores of -1.0 to -2.5 as diagnostic of low bone mass (OSTEOPENIA), and T-scores of -2.5 or lower to be diagnostic of OSTEOPOROSIS, based on the site of lowest bone density. Note that there will be a change in reporting format and reference databases as patients move from the younger population (group A) to the older population (group B) The National Osteoporosis Foundation (www.nof.org) recommends adequate intake of calcium and vitamin D and regular weight-bearing exercise in all patients. They recommend pharmacologic treatment in postmenopausal women and men age 50 and older presenting with any of the followin) Osteoporosis, after appropriate evaluation to exclude secondary causes. 2) A hip or vertebral (clinical or radiographic) fracture, regardless of the bone density. 3) Low bone mass (Osteopenia) and one or more of: other prior fractures, secondary causes associated with high risk of fracture (such as glucocorticoid use or total immobilization), or computed high risk of fracture (10-yr probability of hip fracture >= 3% or a 10-yr probability of any major osteoporosis-related fracture >= 20% based on the [place].-adapted WHO algorithm), available at http://www.shef.ac.uk/FRAX). Dictated by: Alphonse Reynoso M.D. The radiology attending physician has personally reviewed this study, and had reviewed and/or edited this written report and agrees with it. Electronically signed by: Susan Faustin M.D. Narrative 06/10/2022 11:24 AM RIM FIRE CHARGER OPERATOR BONE DENSITOMETRY OF THE SPINE AND HIP DATE OF STUDY: 06/10/2022 HISTORY: 77-year-old postmenopausal woman with prior tobacco use, rheumatoid arthritis and early menopause. She is being treated with calcium and vitamin D supplementation. Evaluate bone mineral density. Additional risk factors for fracture: None. FINDINGS (SPINE): The bone mineral density of L1-L4 was assessed by dual-energy x-ray absorptiometry. The average bone mineral density within this region is 1.105 gm/sq-cm. This is 3.0 standard deviations above the mean of the average bone mineral density for age- and gender-matched subjects (the Z-score). It is 0.5 standard deviations above the mean peak bone mineral density in young adults (the T-score). FINDINGS (FEMORAL NECK): The bone mineral density of the left femoral neck was assessed by dual-energy x-ray absorptiometry. The average bone mineral density within the femoral neck region is 0.827 gm/sq-cm. This is 1.9 standard deviations above the mean of the average bone mineral density for age- and gender-matched subjects (the Z-score). It is 0.2 standard deviations below the mean peak bone mineral density in young adults (the T-score). FINDINGS (TOTAL HIP): The bone mineral density of the left hip was assessed by dual-energy x-ray absorptiometry. The average bone mineral density within the total hip region is 0.935 gm/sq-cm. This is 1.8 standard deviations above the mean of the average bone mineral density for age- and gender-matched subjects (the Z-score). It is 0.1 standard deviations below the mean peak bone mineral density in young adults (the T-score). SUMMARY OF CURRENT RESULTS: Region BMD T-score Z-score AP Spine (L1-L4) 1.105 0.5 3.0 Femoral Neck (Left) 0.827 -0.2 1.9 Total Hip (Left) 0.935 -0.1 1.8 Procedure Note Susan Faustin MD - 06/10/2022 BONE DENSITOMETRY OF THE SPINE AND HIP DATE OF STUDY: 06/10/2022 HISTORY: 77-year-old postmenopausal woman with prior tobacco use, rheumatoid arthritis and early menopause. She is being treated with calcium and vitamin D supplementation. Evaluate bone mineral density. Additional risk factors for fracture: None. FINDINGS (SPINE): The bone mineral density of L1-L4 was assessed by dual-energy x-ray absorptiometry. The average bone mineral density within this region is 1.105 gm/sq-cm. This is 3.0 standard deviations above the mean of the average bone mineral density for age- and gender-matched subjects (the Z-score). It is 0.5 standard deviations above the mean peak bone mineral density in young adults (the T-score). FINDINGS (FEMORAL NECK): The bone mineral density of the left femoral neck was assessed by dual-energy x-ray absorptiometry. The average bone mineral density within the femoral neck region is 0.827 gm/sq-cm. This is 1.9 standard deviations above the mean of the average bone mineral density for age- and gender-matched subjects (the Z-score). It is 0.2 standard deviations below the mean peak bone mineral density in young adults (the T-score). FINDINGS (TOTAL HIP): The bone mineral density of the left hip was assessed by dual-energy x-ray absorptiometry. The average bone mineral density within the total hip region is 0.935 gm/sq-cm. This is 1.8 standard deviations above the mean of the average bone mineral density for age- and gender-matched subjects (the Z-score). It is 0.1 standard deviations below the mean peak bone mineral density in young adults (the T-score). SUMMARY OF CURRENT RESULTS: Region BMD T-score Z-score AP Spine (L1-L4) 1.105 0.5 3.0 Femoral Neck (Left) 0.827 -0.2 1.9 Total Hip (Left) 0.935 -0.1 1.8 IMPRESSION: 1. The bone mineral density of the lumbar spine is normal. 2. The bone mineral density of the left femoral neck is normal. 3. The bone mineral density of the left total hip is normal. 4. Overall, the above findings are normal by WHO criteria. 5. Calculation of fracture risk using the FRAX model is not appropriate in certain settings. It was not performed in this patient because the patient met the following condition(s): normal bone density. General comments regarding interpretation of bone density measurements: A) In children, premenopausal woman and males under age 50 not at increased risk for fractures only Z-scores, not T-scores are used to indicate risk. A Z-score above -2.0 is defined as within the expected range for age and Z-score at or less than -2.0 is below the expected range for age. A Z-score below the expected range for age in a patient with recent fractures and/or chronic corticosteroid treatment is consistent with a diagnosis of osteoporosis. B) In post menopausal women and males over 50, comparison of the measured bone mineral density with the average value in young normal subjects (the T-score) has been found to be useful in assessing fracture risk. Fracture risk approximately doubles for each 1.0 standard deviation (SD) in individual's hip or spine bone mineral density is below the average value of young normal subjects. The World Health Organization (WHO) has defined T-scores of -1.0 to -2.5 as diagnostic of low bone mass (OSTEOPENIA), and T-scores of -2.5 or lower to be diagnostic of OSTEOPOROSIS, based on the site of lowest bone density. Note that there will be a change in reporting format and reference databases as patients move from the younger population (group A) to the older population (group B) The National Osteoporosis Foundation (www.nof.org) recommends adequate intake of calcium and vitamin D and regular weight-bearing exercise in all patients. They recommend pharmacologic treatment in postmenopausal women and men age 50 and older presenting with any of the followin) Osteoporosis, after appropriate evaluation to exclude secondary causes. 2) A hip or vertebral (clinical or radiographic) fracture, regardless of the bone density. 3) Low bone mass (Osteopenia) and one or more of: other prior fractures, secondary causes associated with high risk of fracture (such as glucocorticoid use or total immobilization), or computed high risk of fracture (10-yr probability of hip fracture >= 3% or a 10-yr probability of any major osteoporosis-related fracture >= 20% based on the [place].-adapted WHO algorithm), available at http://www.shef.ac.uk/FRAX). Dictated by: Alphonse Reynoso M.D. The radiology attending physician has personally reviewed this study, and had reviewed and/or edited this written report and agrees with it. Electronically signed by: Susan Faustin M.D. Allen Quiroga MD IMG DXA PROCEDURES Final Result * Hepatitis C antibody (07/24/2018 10:55 AM CDT) Hep C Ab Nonreactive Nonreactive [facility] Comment: Interpretive Data Positive results should be confirmed by a molecular method. If positive, a second separately collected sample should be submitted for Hepatitis C Virus (HCV) RNA Detection and Quantitation by Real-Time Reverse Cp Bleacher Operator-PCR (RT-PCR). Current interpretive data was last revised on 2016. Blood specimen (specimen) 07/24/2018 10:55 AM CDT 07/24/2018 12:41 PM CDT Narrative AMANDA PERSAUD - 07/24/2018 2:17 PM CDT Allen Quiroga MD LAB MICROBIOLOGY - GENERA L ORDERABLES Edited Result - Final [facility] Department [place] [address] from Last 3 Months or Most Recently Relevant to Health Maintenance Insurance MEDICARE [employer] MEDICARE [facility] MEDICARE FOR LIFE MEDICARE FOR LIFE Advance Directives For more information, please contact: [phone] Documents on File Type Date Recorded Patient Race Relations Professor Expl anation Power of Leg Man 05/26/2022 7:50 AM ADVANCE DIRECTIVE 07/20/2021 2:26 PM Power of Leg [employer] * Full Code (Latest Code Status on File) Date Activated Date Inactivated Comments 01/08/2025 1:58 PM 01/08/2025 7:51 PM Care Teams Lace Finisher Relationship Specialty Start Date End Date Allen Quiroga MD [facility] [address] [place] [address] PCP - General 06/20/15 Karina Ruelas MD [address] [place], [place] [address]MUNIRA MILLS [address] [place] [address] Referring Physician Dermatology 07/20/18 Jeannette Cabrales MD [address] [address] Referring Physician Rheumatology 07/20/18 Elizabeth An MD [address] [address] Surgeon Ophthalmology 07/20/18 Bill Mederos MD [id number] [place] [address] Surgeon Orthopedic Surgery 07/20/18 Riley Zarco MD [address] [address] Consulting Physician Orthopedic Surgery 11/08/18 [place] [address] [facility] 2 [place] [address] Consulting Physician Otolaryngology 07/14/23 Mitch Ch MD 4921 [facility] DEPT ORTHOPAEDIC SURGERY, [facility] //[address] [place] [address] Consulting Physician Physical Medicine and Rehabilitation 08/10/24
--- OUTSIDE RECORDS SUMMARY | 2025-02-08 17:16 | XMS_ITS | Encounter Summary ---
Author Organization [facility] Clinical [facility] Address [address] [place] [address] Phone Care Team Providers Care Furniture Assembler Name Role Phone Allen Quiroga MD Primary Care Provider [phone] Karina Ruelas MD Unavailable Jeannette Cabrales MD Unavailable Elizabeth An MD Unavailable Bill Mederos MD Unavailable [phone] Riley Zarco MD Unavailable [phone] Malik West MD Unavailable Mitch Ch MD Unavailable [phone] Encounter Details Date Type Department Care Team (Late st Contact Info) Description 01/30/2025 Results Follow-Up [facility] [address] [facility] [address] [place] [address] Michelle Reyna, JAI [address] [place] [address] [address] [place] [address] US Spleen Social History Tobacco Use Types Packs/Day Years Used Date Smoking Tobacco: Former Cigarettes 0.8 39 0 05/16/1963 - 05/16/2002 Smokeless Tobacco: Never Alcohol Use Standard Drinks/Week Comments Yes 4 [...] on file 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 Gender Identity Female 07/13/2021 8:16 AM PLASTICS SHEET FINISHING PRESS OPERATOR Sexual Orientation Not on file Occupation Industry Job Start Date Job End Date retired Not on file Not on file Not on file documented as of this encounter Plan of Treatment Not on file documented as of this encounter Visit Diagnoses Not on filedocumented in this encounter Care Teams Furniture Assembler Relationship Specialty Start Date End Date Allen Quiroga MD [address] [place], [place] [address]MUNIRA MILLS [address] [place] [address] PCP - General 06/20/15 Karina Ruelas MD [address] [place], [place] [address] [place] [address] Referring Physician Dermatology 07/20/18 Jeannette Cabrales MD [address] [place] [address] Referring Physician Rheumatology 07/20/18 Elizabeth An MD [address] [place] [address] Surgeon Ophthalmology 07/20/18 Bill Mederos MD [address] [place] [address] Surgeon Orthopedic Surgery 07/20/18 Riley Zarco MD [address] [place] [address] Consulting Physician Orthopedic Surgery 11/08/18 [place] [address] [facility] [place] [address] Consulting Physician Otolaryngology 07/14/23 Mitch Ch MD 4921 [facility] DEPT [facility], [facility] [place], [place] [address] Consulting Physician Physical Medicine and Rehabilitation 08/10/24 documented as of this encounter
--- OUTSIDE RECORDS SUMMARY | 2025-02-08 17:16 | XMS_ITS | Encounter Summary ---
Author Organization [facility] Clinical [facility] Address [address] [facility] [address] [place] [address] Phone Care Team Providers Care Metal Riveter Name Role Phone Allen Quiroga MD Primary Care Provider [phone] Karina Ruelas MD Unavailable [phone] Jeannette Cabrales MD Unavailable Elizabeth An MD Unavailable Bill Mederos MD Unavailable Riley Zarco MD Unavailable Malik West MD Unavailable Mitch Ch MD Unavailable Encounter Details Date Type Department Care Team (Late st Contact Info) Description 01/08/2025 Results Follow-Up [facility] [address] 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 4 or more times a week 01/08/2025 1:48 PM Marie Cantu RN Q2: How many drinks containing alcohol do you have on a typical day when you are drinking? 1 or 2 01/08/2025 1:48 PM Mary Alice Cantu RN Q3: How often do you have six or more drinks on one occasion? Never 01/08/2025 1:48 PM Mary Alice Cantu RN documented as of this encounter Plan of Treatment Not on file documented as of this encounter Visit Diagnoses Not on filedocumented in this encounter Care Teams Metal Riveter Relationship Specialty Start Date End Date Allen Quiroga MD [facility] [address] Daw[address] [address] PCP - General 06/20/15 Karina Ruelas MD [facility]0 [facility] [address] Daw[address] [address] Referring Physician Dermatology 07/20/18 Jeannette Cabrales MD [address] [place] [address] Referring Physician Rheumatology 07/20/18 Elizabeth An MD [address] [place] [address] Surgeon Ophthalmology 07/20/18 Bill Mederos MD [address] [place] [address] Surgeon Orthopedic Surgery 07/20/18 Riley Zarco MD [address] [place] [address] Consulting Physician Orthopedic Surgery 11/08/18 [place] [address] [facility] [address] [place] [address] Consulting Physician Otolaryngology 07/14/23 Mitch Ch MD [address] [facility] [address] DEPT ORTHOPAEDIC SURGERY, [facility] 6A/6B/[address] [place] [address] Consulting Physician Physical Medicine and Rehabilitation 08/10/24 documented as of this encounter
--- OUTSIDE RECORDS SUMMARY | 2025-02-08 17:16 | XMS_ITS | Encounter Summary ---
Author Organization [facility] Medical [facility] Address [address] [place] [address] Phone Care Team Providers Care Lap Cutter Truer Operator Name Role Phone Allen Quiroga MD Primary Care Provider Karina Ruelas MD Unavailable [phone] Jeannette Cabrales MD Unavailable [phone] Elizabeth An MD Unavailable Bill Mederos MD Unavailable Riley Zarco MD Unavailable Malik West MD Unavailable [phone] Mitch Ch MD Unavailable Reason for Referral * Diagnostic Imaging (Routine) - Closed Specialty Diagnoses / Procedures Referred By Contac t Referred To Contact Diagnoses Lesion of spleen Procedures US Spleen Michelle Reyna, JAI [address] [facility] [address] Mariza MILLS [address] [place] [address] Phone: tel: fax: [address] [address] Referral ID Status Reason Start Date Expiration Date Visits Re quested Visits Authorized [id number] Closed 01/08/2025 02/07/2026 1 1 Encounter Details Date Type Department Care Team (Late st Contact Info) Description 01/01/2025 Results Follow-Up [facility] [address] [facility] [address] [place] [address] Michelle Reyna NP [address] [facility] [address] Mariza [address] [place] [address] Comprehensive metabolic panel, CBC with auto differential, Differential, auto, Additional followed-up results: 2 Social History Tobacco Use Types Packs/Day Years Used Date Smoking Tobacco: Former Cigarettes 0.8 39 0 05/16/1963 - 05/16/2002 Smokeless Tobacco: Never Alcohol Use Standard Drinks/Week Comments Yes 14 (1 standard drink = 0.6 oz pu re alcohol) AUDIT-C Answer Date Recorded Q1: How often do you have a drink containing alcohol? 4 or more times a week 02/21/2024 Q2: How many drinks containi ng alcohol do you have on a typical day when you are drinking? 1 or 2 Q3: How often do you have si x or more drinks on one occasion? Never 02/21/2024 PHQ-2 Answer Date Recorded PHQ-2 Total Score (If total score is 3 or more points, staff should administer the PHQ-9) 0 02/21/2024 Personal Safety Answer Date Recorded Have you ever been in or are you currently in a harmful physical or emotional relationship or is someone making you feel afraid or unsafe? 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 us Michelle Reyna CASH VAN SALESPERSON IMG US PROCEDURES Final Result documented in this encounter Visit Diagnoses Diagnosis Lesion of spleen- Primary Unspecified disease of spleen Lesion of spleen Unspecified disease of spleen documented in this encounter Care Teams Lap Cutter Truer Operator Relationship Specialty Start Date End Date Allen Quiroga MD [address] [place], [place] [address]MUNIRA MILLS [address] [place] [address] PCP - General 06/20/15 Karina Ruelas MD [address] [place], [place] [address]IR[address]ILLS [address] [place] [address] Referring Physician Dermatology 07/20/18 Jeannette Cabrales MD [address] [facility] [address] [place] [address] Referring Physician Rheumatology 07/20/18 Elizabeth An MD [address] [place] [address] Surgeon Ophthalmology 07/20/18 Bill Mederos MD [address] [place] [address] Surgeon Orthopedic Surgery 07/20/18 Riley Zarco MD [address] [place] [address] Consulting Physician Orthopedic Surgery 11/08/18 [place] [address] [address] Consulting Physician Otolaryngology 07/14/23 Mitch Ch MD 4921 [facility] DEPT ORTHOPAEDIC SURGERY, [facility] 6A/6B/12A [place] [address] Consulting Physician Physical Medicine and Rehabilitation 08/10/24 documented as of this encounter
[2025-02-08 17:29] VITALS: BP 137/57; PULSE 70; RESP 17; TEMP 36.6; O2SAT 100
--- NOTE | 2025-02-08 18:24 | ED_ITS ---
HPI - Fall General Chief Complaint: Fall <Sara Mccarty PA-C - Last Filed: 02/11/25 10:14> Stated Complaint: right foot pain, fall <Sara Mccarty PA-C - Last Filed: 02/11/25 10:14> Time Seen by Provider: 02/08/25 17:33 <Sara Mccarty PA-C - Last Filed: 02/11/25 10:14> Focused HPI: This is a 79 year old female that presents to the ER for a fall. Reports she missed a step and fell onto her right side. She did not hit her head or lose consciousness. She is not on anticoagulation. Reports right foot, bilateral knee pain. GENERAL: Well-appearing, well-nourished, and in no acute distress. HEAD: Normocephalic, atraumatic. CHEST: Clear to auscultation. ?No respiratory distress. HEART: Regular rate and rhythm.? NEURO: ?Alert and oriented x3. Patient screened in triage and initial orders placed.? ?Additional care and disposition to be based upon?diagnostic testing and treatment. <Sara Mccarty PA-C - Last Filed: 02/11/25 10:14> Focused HPI: This is a 79 year old female that presents to the ER for a fall. Reports she missed a step and fell onto her right side. She did not hit her head or lose consciousness. She is not on anticoagulation. Reports right foot, bilateral knee pain. GENERAL: Well-appearing, well-nourished, and in no acute distress. HEAD: Normocephalic, atraumatic. CHEST: Clear to auscultation. ?No respiratory distress. HEART: Regular rate and rhythm.? NEURO: ?Alert and oriented x3. Patient screened in triage and initial orders placed.? ?Additional care and disposition to be based upon?diagnostic testing and treatment. <Barbie Dixon PA-C - Last Filed: 02/08/25 20:36> Source: patient <LEELA Milan Last Filed: 02/08/25 20:36> Mode of arrival: ambulatory <Barbie Dixon PA-C - Last Filed: 02/08/25 20:36> Limitations: no limitations <Barbie Dixon PA-C - Last Filed: 02/08/25 20:36> History of Present Illness HPI Narrative: Agree with above HPI <Barbie Dixon PA-C - Last Filed: 02/08/25 20:36> Related Data Allergies/Adverse Reactions: Allergies Allergy/AdvReac Type Severity Reaction Status Date / Time Penicillins Allergy Unknown Unknown Verified 02/08/25 17:37 MSG Allergy Unknown Unknown Uncoded 02/08/25 17:37 <Sara Mccarty PA-C - Last Filed: 02/11/25 10:14> Review of Systems Review of Systems: All systems reviewed & are unremarkable except as noted in HPI. <Barbie Dixon PA-C - Last Filed: 02/08/25 20:36> All systems reviewed & are unremarkable except as noted in HPI and below <Barbie Dixon PA-C - Last Filed: 02/08/25 20:36> PMFSH Family History Family History: Family History Grandparent Family history of rheumatoid arthritis Mother Family history of malignant neoplasm of cervix Family history of lung cancer Patient's mother is Sibling Family history of malignant neoplasm of cervix Father Family history of lung cancer, Onset Age: 83 Family history of coronary artery disease, Onset Age: 83 Patient's father is Other Family history of malignant neoplasm of thyroid <Sara Mccarty PA-C - Last Filed: 02/11/25 10:14> Exam Narrative: GENERAL: Well appearing, well-nourished, non-toxic, in no acute distress. HEAD: Normocephalic, atraumatic. RESPIRATORY: Airway patent, respirations nonlabored. CARDIOVASCULAR: Regular rate and rhythm without murmurs, rubs, or gallops. Pedal pulses intact MUSCULOSKELETAL: Moves all extremities. No gross deformities. TTP and mild swelling to R lateral dorsal foot/ankle. Sensation intact. SKIN: Warm, dry, normal color. NEURO: A&O X3. Speech clear. Cranial nerves II-XII grossly intact. No ataxic movements. PSYCHIATRIC: Appropriate mood and affect. Normal interaction. <Barbie Dixon PA-C - Last Filed: 02/08/25 20:36> Course Vital Signs Vital signs: Vital Signs Temperature 97.9 F 02/08/25 17:29 Pulse Rate 70 02/08/25 17:29 Respiratory Rate 17 02/08/25 17:29 Blood Pressure 137/57 L 02/08/25 17:29 Pulse Oximetry 100 02/08/25 17:29 Temperature 97.9 F 02/08/25 17:29 Pulse Rate 70 02/08/25 17:29 Respiratory Rate 17 02/08/25 17:29 Blood Pressure 137/57 L 02/08/25 17:29 Pulse Oximetry 100 02/08/25 17:29 <Sara Mccarty PA-C - Last Filed: 02/11/25 10:14> Vital Signs Temperature 97.9 F 02/08/25 17:29 Pulse Rate 70 02/08/25 17:29 Respiratory Rate 17 02/08/25 17:29 Blood Pressure 137/57 L 02/08/25 17:29 Pulse Oximetry 100 02/08/25 17:29 Temperature 97.9 F 02/08/25 17:29 Pulse Rate 70 02/08/25 17:29 Respiratory Rate 17 02/08/25 17:29 Blood Pressure 137/57 L 02/08/25 17:29 Pulse Oximetry 100 02/08/25 17:29 <Barbie Dixon PA-C - Last Filed: 02/08/25 20:36> MDM - Fall MDM Narrative Medical decision making narrative: Patient?s injury is consistent with musculoskeletal etiology. No signs of neurologic or vascular compromise on physical examination. Compartments are soft without signs of compartment syndrome. XR of R ankle showing likely avulsion fx of R cuboid bone. Dedicated foot XR obtained, actually showing avulsion fracture of calcaneus. No cuboid fracture. Confirmed this with Radiology. Pain is consistent with exam and injury. X-rays of bilateral knees negative. Discussed imaging findings with patient. Patient placed in short leg posterior splint. She has crutches and a walker at home that she can use for assistance with ambulation. Advised will need close follow-up with orthopedics. Advised no weight-bearing until seen by orthopedics. Will prescribe pain medication for ho me. Patient in agreement with plan. Denies any other injuries. Given return precautions. Discharged in stable condition. <Barbie Dixon PA-C - Last Filed: 02/08/25 20:36> Medical Records Attestation: I reviewed the patient's medical records. <Barbie Dixon PA-C - Last Filed: 02/08/25 20:36> Imaging Data Attestation: I personally reviewed and interpreted this imaging study as follows: <Barbie Dixon PA-C - Last Filed: 02/08/25 20:36> Radiologist's impression: ITS Impressions Ankle X-Ray 02/08/25 17:54 Impression: Small evulsion fracture Knee X-Ray 02/08/25 17:54 Impression: No acute fracture or malalignment. Knee X-Ray 02/08/25 17:55 Impression: No acute fracture or malalignment. Foot X-Ray 02/08/25 19:38 Impression: 1: Avulsion fracture lateral margin of the calcaneus with associated soft tissue swelling. <Barbie Dixon PA-C - Last Filed: 02/08/25 20:36> Critical Care Time Critical Care Time Critical Care Time: No <Sara Mccarty PA-C - Last Filed: 02/11/25 10:14> Discharge Plan Discharge Clinical Impression: Avulsion fracture of calcaneus Qualifiers: Encounter type: initial encounter Calcaneus location: tuberosity Fracture type: closed Fracture alignment: displaced Laterality: right Qualified Code(s): S92.031A - Displaced avulsion fracture of tuberosity of right calcaneus, initial encounter for closed fracture <aSra Mccarty PA-C - Last Filed: 02/11/25 10:14> Patient Disposition: Home <LEELA Hanna Last Filed: 02/11/25 10:14> Condition: Stable <LEELA Hanna Last Filed: 02/11/25 10:14> Instructions: Antibiotic Form, Calcaneal Fracture (ED), Splint Care (ED) <LEELA Hanna Last Filed: 02/11/25 10:14> Additional Instructions: Continue Tylenol, ibuprofen as needed for pain. Use [place] as needed for severe pain. Follow-up with orthopedics for further evaluation. Call office to make appointment first thing Tuesday morning. Wear splint until seen by orthopedics. Use crutches, avoid weight-bearing until seen by orthopedics. Keep leg elevated, recommend frequent icing. Return to the ED if you experience new or worsening pain/swelling, new injury, numbness, or any other symptoms of concern. <Sara Mccarty PA-C - Last Filed: 02/11/25 10:14> Patient Language: Ecuadorean <Sara Mccarty PA-C - Last Filed: 02/11/25 10:14> Prescriptions: New hydrocodone-acetaminophen 5-325 mg tablet 1 tablet PO Q6H PRN (Reason: pain) Qty: 15 0RF <Sara Mccarty PA-C - Last Filed: 02/11/25 10:14> Follow-up/Referrals: PHYSICIAN NOT ON STAFF,NONSTAFF [Non-Staff] Apollo Mcqueen MD [Physician, Orthopedics] Referral Note: ORTHOPEDICS <Sara Mccarty PA-C - Last Filed: 02/11/25 10:14> Time of Disposition: 19:52 <Sara Mccarty PA-C - Last Filed: 02/11/25 10:14> 19:52 <Barbie Dixon PA-C - Last Filed: 02/08/25 20:36>
== END 2025-02-08 20:02 | disposition home or self-care (01) ==
PROVIDERS: Emergency Provider Physician Assistant
DX: S92.031A Displaced avulsion fracture of tuberosity of right calcaneus, initial encounter for closed fracture (principal); M25.561 Pain in right knee; M25.562 Pain in left knee; W10.9XXA Fall (on) (from) unspecified stairs and steps, initial encounter
CPT/HCPCS: 29515; 73562; 73600; 73630; 99284